=== PATIENT | female | born 1935 | race Caucasian/White ===

== ENCOUNTER 2024-04-28 19:02 | Inpatient (IN) ==
[2024-04-28] MEDS ORDERED: IOPAMIDOL 100 ML BOTTLE IV ONE (19:03)
[2024-04-28] MEDS: ATORVASTATIN 40 MG TABLET PO ONE (20:02)
[2024-04-28] MEDS: ASPIRIN 81 MG TAB.CHEW CHEWED ONE (20:02)
[2024-04-28 20:04] LABS: Basophils # (Auto) 0.02 K/mcL (0.00-0.30); Basophils % (Auto) 0.3 % (0.0-2.0); Eosinophils # (Auto) 0.06 K/mcL (0.00-0.70); Hematocrit 36.9 % (34.1-44.9); Hemoglobin 12.4 g/dL (11.2-15.7); Lymphocytes # (Auto) 2.21 K/mcL (1.50-4.80); Mean Cell Volume 90.9 fL (80.0-100.0); Mean Corpuscular HGB Conc 33.6 g/dL (31.0-36.0); Mean Platelet Volume 9.7 fL (8.8-12.5); Monocytes # (Auto) 0.52 K/mcL (0.10-0.90); Monocytes % (Auto) 8.9 % (1.0-12.0); Neutrophils % (Auto) 51.8 % (38.0-78.0); Platelet Count 204 K/mcL (140-440); RBC 4.06 M/mcL (3.59-5.38); Red Cell Distribution Width 13.7 % (11.5-14.5); WBC 5.8 K/mcL (4.5-11.0)
[2024-04-28 20:15] LABS: INR 0.9 (0.9-1.1); Partial Thromboplastin Time 26.7 sec (20.0-37.0); Prothrombin Time 12.6 sec (11.9-14.5)
[2024-04-28 20:26] LABS: ALT/SGPT 17 U/L (<40); AST/SGOT 26 U/L (<32); Albumin/Globulin Ratio 1.5 (1.0-2.3); Alkaline Phosphatase 99 U/L (39-117); Bilirubin,Total 0.4 mg/dL (0.1-1.0); Blood Urea Nitrogen 14 mg/dL (8-23); Calcium 9.2 mg/dL (8.6-10.4); Carbon Dioxide 24 mmol/L (22-30); Chloride 105 mmol/L (96-108); Globulin 2.6 gm/dL (2.2-3.7); Glomerular Filtration Rate 78; Glucose 114 mg/dL (70-105); Potassium 3.8 mmol/L (3.3-5.1); Sodium 140 mmol/L (133-145)
[2024-04-28 20:49] LABS: Thyroid Stimulating Hormone 1.54 uIU/mL (0.27-5.01)
[2024-04-28 21:33] LABS: Estimated Average Glucose(eAG) 117 mg/dL; Hemoglobin A1C 5.7 % Hgb (4.0-6.0)
[2024-04-28 21:47] LABS: Free T4 (Free Thyroxine) 1.33 ng/dL (0.93-1.70); HDL Cholesterol 101 mg/dL (>40); LDL Cholesterol,Calculated 85 mg/dL (<100); Non-HDL Cholesterol 96 mg/dL (<130); Triglycerides 59 mg/dL (<150)
[2024-04-28] MEDS ORDERED: ONDANSETRON 4 MG/2 ML VIAL IV PRN (22:10)
[2024-04-28] MEDS ORDERED: ACETAMINOPHEN 325 MG TABLET PO PRN (22:10)
[2024-04-28 23:59] LABS: Appearance,Urine Clear (Clear); Bacteria,Urine 0 /hpf (0); Bilirubin,Urine Negative (Negative); Color,Urine Yellow; Glucose,Urine (UA) Negative (Negative); Ketones,Urine Negative (Negative); Leukocyte Esterase,Urine Negative /uL (Negative); Nitrate,Urine Negative (Negative); PH,Urine 6.5 (5.0-9.0); Protein,Urine Negative (Negative); Specific Gravity,Urine 1.015 (1.000-1.035); Urine Blood Trace-intact ery/mcL (Negative); Urine RBC 3 /hpf (0-3); Urine Squamous Epithelial Cell 5 /hpf (0-4); Urine WBC 0 /hpf (0-4); Urobilinogen,Urine Normal
[2024-04-29] MEDS: ATORVASTATIN 40 MG TABLET PO SCH (01:40)
[2024-04-29] MEDS: 0.9 % SODIUM CHLORIDE 10 ML SYRINGE IV SCH (01:40)
[2024-04-29 06:33] LABS: Basophils # (Auto) 0.02 K/mcL (0.00-0.30); Basophils % (Auto) 0.4 % (0.0-2.0); Eosinophils % (Auto) 2.2 % (0.0-7.0); Hematocrit 34.4 % (34.1-44.9); Hemoglobin 11.2 g/dL (11.2-15.7); Lymphocytes # (Auto) 2.43 K/mcL (1.50-4.80); Lymphocytes % (Auto) 53.9 % (15.5-49.0); Mean Cell Volume 94.2 fL (80.0-100.0); Mean Corpuscular HGB Conc 32.6 g/dL (31.0-36.0); Mean Platelet Volume 9.6 fL (8.8-12.5); Monocytes # (Auto) 0.36 K/mcL (0.10-0.90); Neutrophils % (Auto) 35.5 % (38.0-78.0); Platelet Count 173 K/mcL (140-440); RBC 3.65 M/mcL (3.59-5.38); Red Cell Distribution Width 13.8 % (11.5-14.5); WBC 4.5 K/mcL (4.5-11.0)
[2024-04-29 06:46] LABS: ALT/SGPT 16 U/L (<40); AST/SGOT 23 U/L (<32); Albumin 3.4 gm/dL (3.2-5.2); Albumin/Globulin Ratio 1.8 (1.0-2.3); Alkaline Phosphatase 82 U/L (39-117); Bilirubin,Total 0.4 mg/dL (0.1-1.0); Blood Urea Nitrogen 15 mg/dL (8-23); Calcium 8.5 mg/dL (8.6-10.4); Carbon Dioxide 27 mmol/L (22-30); Chloride 105 mmol/L (96-108); Globulin 1.9 gm/dL (2.2-3.7); Glomerular Filtration Rate 82; Glucose 92 mg/dL (70-105); Potassium 3.6 mmol/L (3.3-5.1); Sodium 141 mmol/L (133-145)
[2024-04-29] MEDS: HEPARIN 5,000 UNIT/ML VIAL SQ SCH (08:56)
[2024-04-29] MEDS: ASPIRIN 81 MG TAB.CHEW CHEWED SCH (08:56)
[2024-04-29] MEDS: DOCUSATE SODIUM 100 MG CAPSULE PO SCH (08:56)
[2024-04-29] MEDS: SENNOSIDES 1 TABLET PO SCH (21:34)
[2024-04-29] MEDS: APIXABAN 2.5 MG TABLET PO SCH (21:34)
[2024-04-30 06:51] LABS: Basophils # (Auto) 0.03 K/mcL (0.00-0.30); Basophils % (Auto) 0.5 % (0.0-2.0); Eosinophils # (Auto) 0.12 K/mcL (0.00-0.70); Eosinophils % (Auto) 1.9 % (0.0-7.0); Hematocrit 38.5 % (34.1-44.9); Hemoglobin 12.6 g/dL (11.2-15.7); Lymphocytes # (Auto) 3.33 K/mcL (1.50-4.80); Lymphocytes % (Auto) 52.9 % (15.5-49.0); Mean Cell Volume 93.9 fL (80.0-100.0); Mean Corpuscular HGB Conc 32.7 g/dL (31.0-36.0); Mean Platelet Volume 9.4 fL (8.8-12.5); Monocytes # (Auto) 0.43 K/mcL (0.10-0.90); Monocytes % (Auto) 6.8 % (1.0-12.0); Neutrophils % (Auto) 37.9 % (38.0-78.0); Platelet Count 182 K/mcL (140-440); Red Cell Distribution Width 13.8 % (11.5-14.5); WBC 6.3 K/mcL (4.5-11.0)
[2024-04-30 07:30] LABS: ALT/SGPT 17 U/L (<40); AST/SGOT 25 U/L (<32); Albumin 3.7 gm/dL (3.2-5.2); Albumin/Globulin Ratio 1.8 (1.0-2.3); Alkaline Phosphatase 87 U/L (39-117); Bilirubin,Total 0.4 mg/dL (0.1-1.0); Blood Urea Nitrogen 14 mg/dL (8-23); Carbon Dioxide 28 mmol/L (22-30); Chloride 104 mmol/L (96-108); Globulin 2.1 gm/dL (2.2-3.7); Glomerular Filtration Rate 82; Glucose 92 mg/dL (70-105); Potassium 4.3 mmol/L (3.3-5.1); Sodium 140 mmol/L (133-145)
[2024-04-30] MEDS: LEVOTHYROXINE 75 MCG TABLET PO SCH (08:19)
[2024-04-30] MEDS: FLU VACC TS2024-25(65YR UP)/PF 180 MCG/0.5 ML SYRINGE IM ONE (11:40)
[2024-04-30] MEDS: METOPROLOL SUCCINATE 25 MG TAB.XL.24H PO ONE (13:05)
== END 2024-04-30 14:00 | disposition home health service (06) | DRG 65 ==
LOC: ED 19:02 → ICU 19:02 → MEDSUR 04-29 10:38
PROVIDERS: ADMIT Student in an Organized Health Care Education/Training Program; ATTEND Student in an Organized Health Care Education/Training Program